=== PATIENT | male | born 1965 | race African-American/Black ===

== ENCOUNTER 2017-12-23 08:49 | Emergency (ER) | payer OTHER ==
[~2017-12-23] VITALS: Ht 188 cm; Wt 100.1 kg
[2017-12-23 09:18] LABS: HEMATOCRIT 49.1 % (38.0-50.0); HEMOGLOBIN 17.4 G/DL (12.5-16.6); MCH 33.5 PG (29.0-34.0); MCHC 35.4 G/DL (30.0-36.0); MCV 94.4 FL (86-99); PLATELET COUNT 198 K/uL (156-360); RBC DIS.WIDTH-CV 11.9 % (11.8-14.6); RBC DIS.WIDTH-SD 41.7 % (39-53); WHITE BLOOD COUNT 5.3 K/uL (4.1-10.2)
[2017-12-23 09:18] LABS: APPEARANCE CLEAR ((CLEAR)); BILIRUBIN NEGATIVE; BLOOD NEGATIVE; COLOR AMBER ((YELLOW)); GLUCOSE (STRIP) NEGATIVE; KETONES NEGATIVE; LEUKOCYTES NEGATIVE; NITRITE NEGATIVE; PROTEIN (STRIP) 30; SPECIFIC GRAVITY 1.026 (1.000-1.030); UCUL ADDED? NO
[2017-12-23 09:57] LABS: ALBUMIN 4.2 G/DL (3.2-4.8); ALKALINE PHOSPHATASE 85 IU/L (3-129); ALT (GPT) 99 IU/L (3-49); AST (GOT) 131 IU/L (2-34); CHLORIDE 101 MEQ/L (99-109); CREATININE 0.9 MG/DL (0.6-1.3); GFR ESTIMATE (CALCULATED) > 59 mL/min/ (58.99-99999); GLUCOSE 131 mg/dL (70-99); POTASSIUM 4.3 MEQ/L (3.7-5.4); SODIUM 136 MEQ/L (136-147); TOTAL PROTEIN 8.7 G/DL (6.4-8.3); UREA NITROGEN (BUN) 10 mg/dL (9-23)
[2017-12-23] MEDS ORDERED: ZOFRAN4 MG PO (11:45)
[2017-12-23] MEDS ORDERED: IMODIUM A-D2 M2 PO (11:45)
[2017-12-23 12:00] VITALS: BP 169/106
== END 2017-12-23 12:10 | disposition home or self-care (01) ==
LOC: EME 08:49
DX: A08.4 Viral intestinal infection, unspecified (principal); Z87.19 Personal history of other diseases of the digestive system; Z95.9 Presence of cardiac and vascular implant and graft, unspecified
CPT/HCPCS: 80053; 81003; 85027; 99281; 99285; J1885; J2405; J7030

== ENCOUNTER 2018-01-20 11:38 | Emergency (ER) | payer OTHER ==
[~2018-01-20] VITALS: Ht 188 cm; Wt 102.9 kg
[~2018-01-20 11:38] MED LIST: IMODIUM A-D2 M2 PO; ZOFRAN4 MG PO
[2018-01-20 12:33] LABS: HEMATOCRIT 45.1 % (38.0-50.0); MCH 33.4 PG (29.0-34.0); MCHC 35.5 G/DL (30.0-36.0); MCV 94.2 FL (86-99); PLATELET COUNT 165 K/uL (156-360); RBC DIS.WIDTH-CV 11.9 % (11.8-14.6); RED BLOOD COUNT 4.79 M/uL (4.00-5.50)
[2018-01-20 12:40] LABS: CHLORIDE 105 mEq/L (99-109); POTASSIUM 4.8 mEq/L (3.7-5.4)
[2018-01-20 12:41] LABS: SODIUM 139 mEq/L (136-147)
[2018-01-20 12:43] LABS: GLUCOSE 113 mg/dL (70-99); TOTAL PROTEIN 8.1 g/dL (6.4-8.3)
[2018-01-20 12:46] LABS: ALKALINE PHOSPHATASE 103 IU/L (3-129); CREATININE 0.9 mg/dL (0.6-1.3); GFR ESTIMATE (CALCULATED) > 59 mL/min/ (58.99-99999)
[2018-01-20 12:48] LABS: AST (GOT) 380 IU/L (2-34); UREA NITROGEN (BUN) 11 mg/dL (9-23)
[2018-01-20 12:49] LABS: ALT (GPT) 339 IU/L (3-49)
[2018-01-20 13:56] LABS: APPEARANCE CLEAR ((CLEAR)); BILIRUBIN NEGATIVE; BLOOD NEGATIVE; COLOR YELLOW ((YELLOW)); GLUCOSE (STRIP) NEGATIVE; KETONES NEGATIVE; LEUKOCYTES NEGATIVE; NITRITE NEGATIVE; PROTEIN (STRIP) NEGATIVE; UCUL ADDED? NO
[2018-01-20] MEDS ORDERED: ZOFRAN ODT4 MG PO (17:08)
[2018-01-20 17:39] VITALS: BP 138/88
== END 2018-01-20 17:39 | disposition home or self-care (01) ==
LOC: EME 11:38
DX: R10.2 Pelvic and perineal pain (principal); R11.2 Nausea with vomiting, unspecified; R19.7 Diarrhea, unspecified; R93.2 Abnormal findings on diagnostic imaging of liver and biliary tract; Z87.19 Personal history of other diseases of the digestive system; Z95.9 Presence of cardiac and vascular implant and graft, unspecified
CPT/HCPCS: 74177; 80053; 81003; 85027; 99281; 99284; J2405; J7030

== ENCOUNTER 2018-02-21 14:49 | Emergency (ER) | payer OTHER ==
[~2018-02-21] VITALS: Ht 188 cm; Wt 101.3 kg
[~2018-02-21 14:49] MED LIST changes: +ZOFRAN ODT4 MG PO
[2018-02-21 15:21] LABS: APPEARANCE CLEAR ((CLEAR)); BILIRUBIN NEGATIVE; BLOOD SMALL; COLOR YELLOW ((YELLOW)); GLUCOSE (STRIP) NEGATIVE; KETONES NEGATIVE; LEUKOCYTES NEGATIVE; NITRITE NEGATIVE; PROTEIN (STRIP) NEGATIVE; SPECIFIC GRAVITY 1.017 (1.000-1.030)
[2018-02-21 15:29] LABS: HEMATOCRIT 42.5 % (38.0-50.0); HEMOGLOBIN 15.3 G/DL (12.5-16.6); MCV 91.8 FL (86-99); PLATELET COUNT 128 K/uL (156-360); RBC DIS.WIDTH-CV 13.2 % (11.8-14.6); RBC DIS.WIDTH-SD 44.4 % (39-53); RED BLOOD COUNT 4.63 M/uL (4.00-5.50); WHITE BLOOD COUNT 4.6 K/uL (4.1-10.2)
[2018-02-21 15:33] LABS: BACTERIA RARE /HPF; EPITHELIAL CELLS RARE /HPF; MUCUS TRACE /LPF; RED BLOOD CELLS 0-5 /HPF (0-5); UCUL ADDED? NO; WHITE BLOOD CELLS 0-5 /HPF (0-5)
[2018-02-21 16:49] LABS: TROP-I INTERPRETATION NEGATIVE; TROPONIN-I < 0.01 ng/mL (0.0-0.30)
[2018-02-21] MEDS ORDERED: BENTYL20 MG PO (18:03)
[2018-02-21] MEDS ORDERED: ZOFRAN ODT4 MG PO (18:03)
[2018-02-21 18:25] LABS: ALBUMIN 3.7 G/DL (3.2-4.8); ALKALINE PHOSPHATASE 143 IU/L (3-129); ALT (GPT) 345 IU/L (3-49); AST (GOT) 536 IU/L (2-34); CHLORIDE 100 MEQ/L (99-109); CREATININE 0.9 MG/DL (0.6-1.3); GFR ESTIMATE (CALCULATED) > 59 mL/min/ (58.99-99999); GLUCOSE 110 mg/dL (70-99); LIPASE 25 U/L (1.0-51.0); POTASSIUM 5.8 MEQ/L (3.7-5.4); SODIUM 133 MEQ/L (136-147); TOTAL BILIRUBIN 2.2 MG/DL (0.0-1.0); TOTAL PROTEIN 7.9 G/DL (6.4-8.3); UREA NITROGEN (BUN) 10 mg/dL (9-23)
[2018-02-21 19:23] LABS: SERUM ETHYL ALCOHOL 49 mg/dL
[2018-02-21 19:48] LABS: NO-CHARGE AST (GOT) 549 IU/L (15-37); POTASSIUM 4.9 MEQ/L (3.7-5.4)
[2018-02-21 20:25] VITALS: BP 148/110
== END 2018-02-21 20:26 | disposition home or self-care (01) ==
LOC: EXP 14:49 → EME 14:49 → EXP 20:26
PROVIDERS: Nurse Practitioner Family; Physician Assistant Medical
DX: R10.13 Epigastric pain (principal); F10.10 Alcohol abuse, uncomplicated; R74.0 Nonspecific elevation of levels of transaminase and lactic acid dehydrogenase [LDH]; Z90.49 Acquired absence of other specified parts of digestive tract; Y90.2 Blood alcohol level of 40-59 mg/100 ml
CPT/HCPCS: 80053; 81003; 82248; 83690; 84484; 84999; 85027; 99281; 99285; G0480; J1885; J2405; J7030